=== PATIENT | female | born 1950 | race Caucasian/White ===

== ENCOUNTER 2025-05-19 08:01 | Day surgery (SDC) | payer MEDICARE, BC ==
[2025-05-18 14:19] LABS: MEAN PLATELET VOLUME 7.3 FL (7.4-10.4); PRE OP HEMATOCRIT 41.9 % (35.0-45.0); PRE OP HEMOGLOBIN 14.3 g/dL (12.0-16.0); PRE OP PLATELET COUNT 232 X10'3 (140-440); PRE OP WHITE BLOOD COUNT 6.1 10'3 (4.8-10.8); RED CELL DISTRIBUTION WIDTH 14.0 % (11.5-14.5)
[2025-05-18 14:33] LABS: PRE OP INR 1.0 INR; PRE OP PARTIAL THROMB. TIME 25.0 SECONDS (22-32); PRE OP PROTIME 10.5 SECONDS (9.0-12.0)
[2025-05-18 14:43] LABS: CREATININE 0.72 MG/DL (0.40-0.90); PRE OP ALT 22 U/L (30-65); PRE OP ANION GAP 9 (8-16); PRE OP AST 19 U/L (10-37); PRE OP BILIRUB, TOTAL 0.5 MG/DL (0.0-1.0); PRE OP GLUCOSE 96 MG/DL (70-104); PRE OP POTASSIUM 3.7 MMOL/L (3.4-5.1); PRE OP SODIUM 140 MMOL/L (135-145); TOTAL CARBON DIOXIDE 25.9 MMOL/L (24-32); eGFR 79 ML/MIN
[~2025-05-19] VITALS: Ht 172.7 cm; Wt 167.9 kg
[2025-05-19] VITALS (18 sets, daily range): BP systolic 147–175; BP diastolic 67–87; PULSE 61–100; RESP 13–18; TEMP 96.9–98; O2SAT 94–100
[~2025-05-19 08:01] MED LIST: AMLO5TAB16 PO; METH-1026 PO; ROSU5TAB51 PO
[2025-05-19] MEDS: Cefazolin 3 GM/100ML NS IVPB 100 ML IV ONE (09:32)
[2025-05-19] MEDS: ringers solution, lacted 1,000 ML IV SCH ×3 (09:32→10:30)
[2025-05-19] MEDS ORDERED: BUPIVAcaine/PF 2.5mg/ml (0.25%) 10ml vial ONE ×2 (10:10→10:15)
[2025-05-19] MEDS ORDERED: methylene blue (5mg/ml) 50mg/10ml ampul IV ONE (10:11)
[2025-05-19] MEDS ORDERED: BUPIVACAINE liposomal/PF 13.3 MG/ML 10mL vial IM ONE ×3 (10:12→10:30)
[2025-05-19] MEDS ORDERED: HYDROmorphone/PF 0.2 MG/ML SYRINGE IV PRN ×2 (10:30)
[2025-05-19] MEDS ORDERED: hydrALAZINE 20mg/ml inj. IV PRN (10:30)
[2025-05-19] MEDS ORDERED: acetaminophen 1,000mg/100ml IV 100 ML IV PRN (10:30)
[2025-05-19] MEDS ORDERED: morphine 4 MG/ML inj SYRINge IV PRN (10:30)
[2025-05-19] MEDS ORDERED: labetalol 20mg/4ml (5mg/ml) syringe IV PRN (10:30)
[2025-05-19] MEDS ORDERED: ondansetron/PF 4mg/2ml inj IV PRN ×2 (10:30→13:20)
[2025-05-19] MEDS ORDERED: midazolam 1 mg/ML 2ml injection ONE (10:39)
[2025-05-19] MEDS ORDERED: propofol inj 20 ML IV ONE (11:02)
[2025-05-19] MEDS ORDERED: fentaNYL /PF 50mcg/ml 5ml ampule ONE (11:02)
[2025-05-19] MEDS ORDERED: LIDOcaine 2% (20mg/ml) 5ml vial ONE (11:02)
[2025-05-19] MEDS ORDERED: ondansetron/PF 4mg/2ml inj ONE (11:02)
[2025-05-19] MEDS ORDERED: dexamethasone sod phosphate 4mg/ml inj. ONE (11:02)
[2025-05-19] MEDS ORDERED: morphine 10mg/ml inj. ONE (11:30)
[2025-05-19] MEDS ORDERED: ePHEDrine 50MG/ML INJ. ONE (12:21)
[2025-05-19] MEDS: BUPIVACAINE liposomal/PF 13.3 MG/ML 10mL vial IM ONE (12:30)
[2025-05-19] MEDS: BUPIVAcaine/PF 2.5mg/ml (0.25%) 10ml vial IJ ONE (12:30)
[2025-05-19] MEDS ORDERED: HYDROcodone/acetaminophen 5mg/325mg tablet PO PRN (13:20)
--- NOTE | 2025-05-19 13:42 | OPERATIVE REPORT ---
Operative Report Providers to CC: MIRIAN MELGAR DO ~ Date of Procedure: May 19, 2025 Pre-Operative Diagnosis: Left breast cancer Post-Operative Diagnosis SAME as PRE-Op Procedure Performed Left breast simple mastectomy and left axillary sentinel lymph node biopsy Surgeon: Dr. Mirain Melgar Jumpbasting Collar Baster Deborah Heaton PA-C Anesthesiologist: Bari Goldman Type of Anesthesia: General Findings: Left axillary sentinel lymph node hot and blue Complications None Prosthetics\Implants used: None Estimated Blood Loss: Less than 10 mL Specimen Removed: 1. Left breast simple mastectomy suture marked short superior and long lateral 2. 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 She has a history of right breast cancer status post mastectomy. She had an extensive workup and decided to move forward with a mastectomy as opposed breast conservation. She had the Lymphoseek injection this morning. She was seen and evaluated in the preoperative holding area by myself and the anesthesiologist. She had an IV hanging at the bedside, SCDs to lower extremities and IV antibiotics which were administered prior to the cut of surgery. Breast was marked with my initials. She was taken to the OR and placed on the table in supine position with the arms extended. General anesthesia was administered with an LMA. She had a pecs one and two block administered. 3 mL of methylene blue dye was injected at the 3 o'clock position subareolar and massaged for 4 minutes. The markings were made in the breast for the proposed incisions. Patient was prepped and draped in a sterile fashion. A time-out was performed and agreed upon the incision was made with a 10 blade and a large elliptical fashion encompassing the nipple and the areolar complex. I extended the incision into the deep dermal layer with the cutting on the cautery. Hemostasis was achieved with Bovie electrocautery. The superior flap was raised with cat claw retractors. I dissected in the subcutaneous plane in the medial and lateral directions down to the chest wall while attention was b eing made. I turned my attention to the inferior flap and dissected in the same fashion. Medially I used the LigaSure to assist with hemostasis during the dissection. The breast and fascia was removed from the chest wall in a superior to inferior medial lateral direction. The specimen was oriented with short stitch superior long suture lateral and placed in formalin off the field. The IV was copiously irrigated and hemostasis was achieved with Bovie electrocautery. I turned my attention to the left axillary sentinel lymph node biopsy. I made an incision in the axillary fascia and there was a blue lymph node possibly to that was noticeable immediately. It was also hot with the gamma probe. There was completely excised with the LigaSure after being stabilized with a tonsil clamp. It was removed on of the cavity and is count was approximately 2000. It was placed off the field in formalin. I re-scanned the left axilla and there was no further count. The activity was quiet. The cavity was irrigated hemostasis was achieved with Bovie electrocautery. 10 mL of Vistaseal was sprayed in the cavity of the breast and the axilla. This was to assist with hemostasis. The axillary fascia was approximated with 3-0 Vicryl interrupted suture. A 15 Spanish LYNSEY drain was placed in the lower outer quadrant. A stab incision was made with a 15 blade and the tonsil clamp pulled the drain into the cavity. It was secured with 4-0 nylon suture. The incision was closed with 3-0 Vicryl interrupted sutures in the deep layer along with the INSORB stapling device. The skin was closed with a 3-0 strata fix Monocryl suture. Dermabond glue was placed on the incision after it was cleaned. Exparel was injected at the site. Patient tolerated procedure well. All dressings were placed over the LYNSEY drain in the incision. ABDs were placed in the chest wall and the patient was Sanchez wrapped. She was taken to recovery in stable condition without complication. MIRIAN MELGAR DO May 19, 2025 13:42
[2025-05-19] MEDS: ceFAZolin 2gm/dext,iso 50mL 50 ML IV SCH (20:05)
[2025-05-20 02:00] VITALS: BP 168/74; PULSE 86; RESP 18; TEMP 98.4; O2SAT 99
[2025-05-20 03:44] LABS: MEAN PLATELET VOLUME 7.4 FL (7.4-10.4); RED CELL DISTRIBUTION WIDTH 14.2 % (11.5-14.5)
[2025-05-20] MEDS: ceFAZolin 2gm/dext,iso 50mL 50 ML IV SCH (03:56)
[2025-05-20 04:00] VITALS: BP 173/71
[2025-05-20 06:00] VITALS: BP 161/78; PULSE 96; RESP 14; TEMP 98.4; O2SAT 97
[2025-05-20 08:55] VITALS: RESP 16; O2SAT 95
--- NOTE | 2025-05-20 09:16 | PROGRESS NOTE ---
Progress Note Dictate Providers to CC CC: MIRIAN MELGAR DO ~ Progress Note: Postop day #1 status post left breast simple mastectomy and left axillary sentinel lymph node biopsy Antibiotic Ordered?: Yes If Yes, Indications: Breast surgical prophylaxis If Yes, Anticipated Duration: Two doses postop MRSA Education MRSA Education Provided to pt: No Subjective Subjective Tolerated breath fixed, ambulating to the bathroom, deny pain Objective Vitals Vital Signs Date Time Temp Pulse Resp B/P (MAP) Pulse Ox O2 Delivery O2 Flow Rate FiO2 05/20/25 08:55 16 95 Room Air 0.0 05/20/25 06:00 98.4 96 161/78 (105) Lab Results: 05/20/25 0319 05/18/25 1410 Objective Alert and oriented x3 no acute distress sitting comfortably in her bed Chest: Sanchez wrap intact without swelling or drainage Extremities: No swelling in the upper extremities bilaterally and no cyanosis clubbing or edema in the lower extremities, SCDs on and working Coagulation Studies Laboratory Tests Test 05/18/25 14:10 Prothrombin Time 10.5 SECONDS (9.0-12.0) INR International Normalized Ratio 1.0 INR Activated Partial Thromboplast Time 25 SECONDS (22-32) Counseling Services Smoking & Tobacco Cessation: N/A Problem\Assessment\Plan Problems/Diagnosis: (1) Breast cancer in female Assessment & Plan: Postop day #1 Status post left breast simple mastectomy and left axillary sentinel lymph node biopsy Left breast cancer stage I and history of right breast cancer status post mastectomy Hypertension-last blood pressure adequate after taking her blood pressure medication LYNSEY output adequate-teach drain care empty/record and provide patient with 3-0 record sheet Pain controlled patient has been prescribed antibiotics and encouraged to take extra-strength Tylenol as primary pain medication and Tylenol with codeine for breakthrough pain Continue to ambulate and use incentive spirometer at home Discharge home today Notify doctor Melgar of any concerns. Patient will follow up with doctor Melgar in the office for drain removal and postoperative care Problem Qualifiers (1) Breast cancer in female: Qualified Codes: C50.912 - Malignant neoplasm of unspecified site of left female breast; Z17.0 - Estrogen receptor positive status [ER+] MIRIAN MELGAR DO May 20, 2025 09:16
--- NOTE | 2025-05-20 09:20 | DISCHARGE SUMMARY ---
Discharge Summary Providers to CC CC: MIRIAN MELGAR DO ~ Discharge Summary Assessment Postop day #1 Status post left breast simple mastectomy and left axillary s entinel lymph node biopsy Admission Diagnosis: Left breast cancer Hospital Course DATE OF ADMISSION: DATE OF DISCHARGE: Discharge Diagnosis\Comment: Left breast ductal carcinoma stage 1 Operations\Procedures: left breast simple mastectomy and left axillary sentinel lymph node biopsy Consultants: None Complications: None Condition on DC: Stable Discharge Summary: Brayan is a 74-year-old female who was diagnosed with early stage left breast cancer. Has a history of right breast cancer status post mastectomy. She had the nuclear medicine injection prior to arrival to the hospital yesterday. She was seen in the preoperative holding area by myself and the anesthesiologist. She was taken to surgery for a left breast simple mastectomy and left axillary sentinel lymph node biopsy. Prior to the start of surgery the anesthesiologist performed a pecs one and two block. There were no complications. Vistaseal was sprayed in the cavity surgery. She was comfortable in the postoperative care unit and discharged to the floor. Her evening was unremarkable. She did have an elevated blood pressure this morning and took her blood pressure medication which resulted in adequate blood pressure. She was pain-free and ambulated during her stay. She is discharged home today in to follow up with the office with Dr. Melgar. She has pain medications at home she will also empty and record her LYNSEY output. Doctor Anne notify her when it is time to come in for LYNSEY drain pull but she has a two week follow up appointment. She is to notify doctor Melgar with any concerns or questions during and after office hours *Problems/Diagnosis: (1) Breast cancer in female Total Time Spent on D/C: > 30 Minutes Counseling Services Smoking & Tobacco Cessation: N/A Problem Qualifiers (1) Breast cancer in female: Qualified Codes: C50.912 - Malignant neoplasm of unspecified site of left female breast; Z17.0 - Estrogen receptor positive status [ER+] MIRIAN MELGAR DO May 20, 2025 09:20
== END 2025-05-20 10:43 | disposition home or self-care (01) ==
LOC: PAS 08:01 → SUR 3N 13:26 → PAS 05-20 10:43
PROVIDERS: ATTEND Surgery
DX: D05.12 Intraductal carcinoma in situ of left breast (principal); E78.5 Hyperlipidemia, unspecified; I10 Essential (primary) hypertension; R73.09 Other abnormal glucose; Z17.0 Estrogen receptor positive status [ER+]; Z79.01 Long term (current) use of anticoagulants; Z96.653 Presence of artificial knee joint, bilateral; Z90.13 Acquired absence of bilateral breasts and nipples; Z85.3 Personal history of malignant neoplasm of breast
CPT/HCPCS: 19303; 36415; 38525; 38900; 80053; 82948; 84443; 85025; 85610; 85730; 86885; 86900; 86901; 87081; 88307; 88341; 88342; A4215; A4618; A6212; A6253; A6258; A6449; J0666; J0690; J1100; J2003; J2250; J2270; J2405; J2704; J3010; J3490; J7030; J7120; Q9968; Z7506; Z7508; Z7512; Z7610; C9250; G0378; J2274